=== PATIENT | male | born 1990 | race Caucasian/White ===

== ENCOUNTER 2018-01-23 23:05 | Emergency (ER) | payer SELFPAY ==
[~2018-01-23] VITALS: Ht 177.8 cm; Wt 81.6 kg
[2018-01-23 23:09] VITALS: BP 161/130
[2018-01-23] MEDS ORDERED: IBUPROFEN 400 MG TABLET PO ONE (23:30)
[2018-01-23] MEDS ORDERED: IBUPROFEN 400 MG TABLET ONE (23:34)
== END 2018-01-23 23:49 | disposition home or self-care (01) ==
LOC: ER 23:07
DX: S03.2XXA Dislocation of tooth, initial encounter (principal); V89.2XXA Person injured in unspecified motor-vehicle accident, traffic, initial encounter; W51.XXXA Accidental striking against or bumped into by another person, initial encounter; Y93.89 Activity, other specified; Y92.89 Other specified places as the place of occurrence of the external cause; Y99.8 Other external cause status
CPT/HCPCS: A4606; Z7610